=== PATIENT | female | born 1970 | race Caucasian/White ===

== ENCOUNTER 2019-09-10 22:45 | Emergency (ER) | payer OTHER ==
[~2019-09-10] VITALS: Ht 157.5 cm; Wt 59.0 kg
[2019-09-10 22:49] VITALS: BP 140/104
--- NOTE | 2019-09-10 23:00 | NUR ---
PT TAKEN TO BED 10
--- NOTE | 2019-09-10 23:16 | NUR ---
48 YO F BIB DAUGHTER C/O UTI S/SX SINCE THIS AM. PT REPORTS HX OF FREQUENT UTI. PT REPORTS BURNING WITH URINATION AND PELVIC PAIN. DENIES DISCHARGE, FEVER. -- PT AWAKE, A/O X 4. CALM, COOPERATIVE. BEHAVIOR AGE APPROPRIATE. ANSWERS QUESTIONS IN CLEAR, FULL SENTENCES. -- SKIN PINK, WARM, DRY. BREATHING EVEN, UNLABORED PMH-- DENIES RX-- DENIES
--- NOTE | 2019-09-10 23:20 | NUR ---
DR. MILAN EVALUATING AT BEDSIDE.
[2019-09-10] MEDS ORDERED: PHENAZOPYRIDINE 100 MG TAB PO ONE (23:35)
[2019-09-10 23:40] VITALS: BP 140/104
--- NOTE | 2019-09-10 23:40 | NUR ---
Patient discharged with v/s stable. Written and verbal after care instructions given and explained. Patient alert, oriented and verbalized understanding of instructions. Ambulatory with steady gait. All questions addressed prior to discharge. ID band removed. Patient advised to follow up with PMD. Rx of Phenazopyridine, Naprosyn, Keflex given. Patient educated on indication of medication including possible reaction and side effects. Opportunity to ask questions provided and answered.
== END 2019-09-10 23:40 | disposition home or self-care (01) ==
LOC: MED 22:45
DX: N39.0 Urinary tract infection, site not specified (principal)
CPT/HCPCS: 81002; 81025; 99283

== ENCOUNTER 2021-04-26 09:01 | Emergency (ER) | payer OTHER ==
[~2021-04-26] VITALS: Ht 157.5 cm; Wt 59.9 kg
[2021-04-26 09:06] VITALS: BP 150/85
[2021-04-26] MEDS ORDERED: LIDOCAINE MPF 1% 10 MG/ML VIAL INJ ONE (09:30)
--- NOTE | 2021-04-26 09:33 | NUR ---
50 YEAR OLD FEMALE COMPLAINS HEADACHE, DIZZINESS, AND WEAKNESS X 3 DAYS. PT ALSO STATES SHE HAS RIGHT ARM NUMBNESS. PT AOX4, BREATHING EVEN AND UNLABORED, SKIN WARM AND DRY. BED IN LOWEST POSITION, LOCKED, BED RAIL UPX1. PMH - DENIES ALLERGIES - NKA
[2021-04-26 09:44] LABS: BASOPHILS # (AUTO) 0.1 K/uL (0.00-0.22); EOSINOPHILS # (AUTO) 0.2 K/uL (0-0.4); EOSINOPHILS % (AUTO) 2.5 % (0.0-4.0); HEMATOCRIT 39.5 % (36-48); HEMOGLOBIN 13.7 g/dL (12.0-16.0); LYMPHOCYTES # (AUTO) 2.3 K/uL (2.5-16.5); LYMPHOCYTES % (AUTO) 32.1 % (20.5-51.1); MEAN CORPUSCULAR HEMOGLOBIN 33 pg (27-31); MEAN CORPUSCULAR HGB CONC 35 g/dL (33-37); MEAN CORPUSCULAR VOLUME 96.2 fL (80-94); MONOCYTES # (AUTO) 0.4 K/uL (0.8-1.0); MONOCYTES % (AUTO) 5.3 % (1.7-9.3); NEUTROPHILS # (AUTO) 4.2 K/uL (1.8-7.7); NEUTROPHILS % (AUTO) 59.1 % (42.2-75.2); PLATELET COUNT (AUTO) 342 K/uL (140-450); RED BLOOD CELL COUNT(AUTO) 4.11 MIL/uL (4.20-5.40); RED CELL DISTRIBUTION WIDTH 12.8 % (11.6-13.7)
[2021-04-26 10:15] LABS: ALBUMIN 3.8 g/dL (3.4-5.0); ANION GAP 16.3 (8-16); CARBON DIOXIDE 23.6 mmol/L (21-32); CREATININE 0.8 mg/dL (0.6-1.3); POTASSIUM 3.9 mmol/L (3.5-5.1); THYROID STIMULATING HORMONE 1.3 uIU/mL (0.34-3.74)
[2021-04-26 10:30] LABS: TOTAL BILIRUBIN 0.6 mg/dL (0.0-1.0)
[2021-04-26 10:45] VITALS: BP 150/85
--- NOTE | 2021-04-26 10:45 | NUR ---
Patient discharged with v/s stable. Written and verbal after care instructions about occipital neuralgia, weakness given and explained. Patient verbalized understanding. Ambulatory with steady gait. All questions addressed prior to discharge. Advised to follow up with PMD.
== END 2021-04-26 10:45 | disposition home or self-care (01) ==
LOC: MED 09:01
DX: G44.209 Tension-type headache, unspecified, not intractable (principal); R53.1 Weakness; M54.2 Cervicalgia; R42 Dizziness and giddiness
CPT/HCPCS: 36415; 80053; 81002; 81025; 84443; 85025; 93005; 99284; J2001